=== PATIENT | female | born 1950 | race African-American/Black ===

== ENCOUNTER 2021-07-09 09:03 | Inpatient (IN) | payer OTHER ==
[2021-07-09 09:24] VITALS: BMI 16.9
[2021-07-09] MEDS ORDERED: PIPERACILLIN/TAZOB 4.5 GM 4.5 GM in DEXTROSE 5%-WATER 100 ML IVPB ONE (09:26)
[2021-07-09] MEDS ORDERED: VANCOMYCIN 1,000 MG in DEXTROSE 5%-WATER - 250 ML IVPB ONE (09:26)
[2021-07-09] MEDS ORDERED: PIPERACILLIN/TAZOB 4.5 GM 4.5 GM/100 ML BAG IVPB ONE (09:56)
[2021-07-09] MEDS ORDERED: VANCOMYCIN 1 GRAM (PRE-DOCKED) 1,000 MG/250 ML BAG IVPB ONE (09:56)
[2021-07-09 10:13] LABS: VENOUS BASE EXCESS -4.8 mmol/L (-2-2); VENOUS O2 SATURATION 57.8 % (70-80); VENOUS PH 7.248 (7.310-7.410)
[2021-07-09 10:26] LABS: BASO % 0.7 % (0-2.0); HEMATOCRIT 41.2 % (32.4-45.2); LYMPH % 16.3 % (8-40); MCH 34.6 pg (25.7-33.7); MCHC 34.1 g/dl (32.0-36.0); MEAN CELL VOLUME 101.6 fl (80-96); MEAN PLT VOLUME 8.4 fl (7.5-11.1); PLATELET COUNT 249 10^3/uL (134-434); RBC 4.06 M/mm3 (3.60-5.2); RDW 15.7 % (11.6-15.6); WHITE BLOOD COUNT 11.6 K/mm3 (4.0-10.0)
[2021-07-09 10:40] LABS: INR 0.94 (0.83-1.09); PROTHROMBIN TIME (PATIENT) 10.8 SEC (9.7-13.0)
[2021-07-09 10:42] LABS: ACTIVATED PTT 42.6 SECONDS (25.2-36.5)
[2021-07-09 10:50] LABS: CREATININE 1.2 mg/dL (0.55-1.3)
[2021-07-09 10:59] LABS: EPI CELLS 8 /uL (0-25.1); HYALINE CASTS 1 /uL (0-3.1); URINE APPEARANCE CLEAR; URINE BACTERIA >9,000 /uL (0-1359); URINE BILIRUBIN NEGATIVE (NEGATIVE); URINE COLOR DK YELLOW; URINE GLUCOSE (UA) NEGATIVE (NEGATIVE); URINE KETONE TRACE (NEGATIVE); URINE LEUK ESTERASE NEGATIVE (NEGATIVE); URINE NITRITE NEGATIVE (NEGATIVE); URINE PROTEIN 3+ (NEGATIVE); URINE RBC 16 /uL (0-23.9); URINE WBC 6 /uL (0-25.8)
[2021-07-09 11:39] LABS: LACTIC ACID 3.8 mmol/L (0.4-2.0)
[2021-07-09 11:44] LABS: ALBUMIN 2.9 g/dl (3.4-5.0); BILIRUBIN,TOTAL 0.7 mg/dL (0.2-1); BLOOD UREA NITROGEN 24.3 mg/dL (7-18); CALCIUM 9.5 mg/dL (8.5-10.1); TOT PROT 9.2 g/dl (6.4-8.2)
[2021-07-09 12:23] LABS: URINE CRYSTALS CALCIUM OXALATE /hpf
[2021-07-09] MEDS ORDERED: SODIUM CHLORIDE 1,000 ML IV SCH (14:45)
[2021-07-09] MEDS ORDERED: PIPERACILLIN/TAZOB 3.375 GM 3.375 GM in DEXTROSE 5%-WATER - 50 ML IVPB SCH (18:00)
[2021-07-09] MEDS ORDERED: HEPARIN NA (PORCINE) 5,000 UNITS/ML 1ML VIAL SQ SCH (18:00)
[2021-07-09] MEDS ORDERED: PIPERACILLIN/TAZOB 3.375 GM 3.375 GM/50 ML BAG IVPB ONE (18:07)
[2021-07-09] MEDS: PIPERACILLIN/TAZOB 3.375 GM 3.375 GM in DEXTROSE 5%-WATER - 50 ML IVPB SCH (18:24)
[2021-07-09] MEDS ORDERED: amLODIPine BESYLATE 10 MG TABLET (FP) PO ONE (18:28)
[2021-07-09] MEDS ORDERED: amLODIPine BESYLATE 10 MG TABLET (FP) ONE (18:30)
[2021-07-09] MEDS ORDERED: VANCOMYCIN 1 GM in D5W (PRE-DOCKED) 1,000 MG/250 ML IVPB SCH (22:00)
[2021-07-09] MEDS: DOCUSATE SODIUM 100 MG CAPSULE (FP) PO SCH (22:41)
[2021-07-09] MEDS: MIRTAZAPINE 15 MG TABLET (FP) PO SCH (22:41)
[2021-07-09] MEDS: HEPARIN NA (PORCINE) 5,000 UNITS/ML 1ML VIAL SQ SCH (22:41)
[2021-07-09] MEDS ORDERED: KETOROLAC TROMETHAMINE 15 MG/ML VIAL IVPUSH ONE (22:52)
[2021-07-10] MEDS ORDERED: PIPERACILLIN/TAZOBACTAM 3.375 GM VIAL IVPB ONE (01:21)
[2021-07-10] MEDS ORDERED: DEXTROSE 5%-WATER - 50 ML IVPB ONE ×2 (01:21→09:27)
[2021-07-10] MEDS: PIPERACILLIN/TAZOB 3.375 GM 3.375 GM in DEXTROSE 5%-WATER - 50 ML IVPB SCH (01:32)
[2021-07-10] MEDS: HEPARIN NA (PORCINE) 5,000 UNITS/ML 1ML VIAL SQ SCH ×3 (06:03→21:09)
[2021-07-10] MEDS: DOCUSATE SODIUM 100 MG CAPSULE (FP) PO SCH ×3 (06:03→21:09)
[2021-07-10 08:42] LABS: BASO % 0.8 % (0-2.0); HEMATOCRIT 35.3 % (32.4-45.2); HEMOGLOBIN 11.7 GM/dL (10.7-15.3); LYMPH % 22.3 % (8-40); MCH 34.2 pg (25.7-33.7); MCHC 33.1 g/dl (32.0-36.0); MEAN CELL VOLUME 103.3 fl (80-96); MEAN PLT VOLUME 8.9 fl (7.5-11.1); NEUT % 70.9 % (42.8-82.8); PLATELET COUNT 178 10^3/uL (134-434); RBC 3.42 M/mm3 (3.60-5.2); RDW 14.7 % (11.6-15.6); WHITE BLOOD COUNT 10.5 K/mm3 (4.0-10.0)
[2021-07-10 09:24] LABS: CALCIUM 8.3 mg/dL (8.5-10.1)
[2021-07-10 09:25] LABS: BLOOD UREA NITROGEN 15.7 mg/dL (7-18)
[2021-07-10] MEDS ORDERED: cefTRIAXone SODIUM 1 GM VIAL ONE (09:27)
[2021-07-10 09:28] LABS: CREATININE 0.9 mg/dL (0.55-1.3)
[2021-07-10 09:29] LABS: BILIRUBIN,TOTAL 1.1 mg/dL (0.2-1)
[2021-07-10 09:31] LABS: ALBUMIN 1.9 g/dl (3.4-5.0); TOT PROT 6.2 g/dl (6.4-8.2)
[2021-07-10] MEDS: DONEPEZIL HCL 5 MG TABLET (FP) PO SCH (10:13)
[2021-07-10] MEDS: CEFTRIAXONE 1 GM in DEXTROSE 5%-WATER - 50 ML IVPB SCH (10:13)
[2021-07-10] MEDS: ELVITEG/COB/EMTRI/TENOF (GENVOYA) TABLET (NF) PO SCH (11:54)
[2021-07-10] MEDS: MIRTAZAPINE 15 MG TABLET (FP) PO SCH (21:09)
[2021-07-11] MEDS: DOCUSATE SODIUM 100 MG CAPSULE (FP) PO SCH ×3 (05:50→21:17)
[2021-07-11 07:42] LABS: BASO % 1.5 % (0-2.0); EOS % 1.8 % (0-4.5); HEMATOCRIT 34.1 % (32.4-45.2); HEMOGLOBIN 11.5 GM/dL (10.7-15.3); MCH 34.7 pg (25.7-33.7); MCHC 33.7 g/dl (32.0-36.0); MEAN CELL VOLUME 103.1 fl (80-96); MEAN PLT VOLUME 8.9 fl (7.5-11.1); MONO % 7.4 % (3.8-10.2); NEUT % 57.3 % (42.8-82.8); PLATELET COUNT 180 10^3/uL (134-434); RBC 3.31 M/mm3 (3.60-5.2); RDW 14.7 % (11.6-15.6); WHITE BLOOD COUNT 8.1 K/mm3 (4.0-10.0)
[2021-07-11 07:49] LABS: INR 1.11 (0.83-1.09); PROTHROMBIN TIME (PATIENT) 12.8 SEC (9.7-13.0)
[2021-07-11 08:06] LABS: CHLORIDE 113 mmol/L (98-107); SODIUM 145 mmol/L (136-145)
[2021-07-11 08:12] LABS: GLUCOSE,RANDOM 94 mg/dL (74-106)
[2021-07-11 08:13] LABS: IRON SERUM 103 ug/dL (50-175); TOTAL IRON BINDING CAPACITY 166 ug/dL (250-450)
[2021-07-11 08:14] LABS: CALCIUM 8.3 mg/dL (8.5-10.1)
[2021-07-11 08:15] LABS: ANION GAP 5 MMOL/L (8-16); CO2 27 mmol/L (21-32); CREATININE 0.7 mg/dL (0.55-1.3)
[2021-07-11] MEDS ORDERED: POTASSIUM CHLORIDE ORAL LIQUID 20 MEQ/15 ML PO ONE (08:50)
[2021-07-11 09:28] LABS: MAGNESIUM 1.7 mg/dL (1.8-2.4)
[2021-07-11] MEDS ORDERED: DEXTROSE 5%-WATER - 50 ML IVPB ONE (09:39)
[2021-07-11] MEDS ORDERED: cefTRIAXone SODIUM 1 GM VIAL ONE (09:39)
[2021-07-11] MEDS: ELVITEG/COB/EMTRI/TENOF (GENVOYA) TABLET (NF) PO SCH (09:46)
[2021-07-11] MEDS: DONEPEZIL HCL 5 MG TABLET (FP) PO SCH (09:47)
[2021-07-11] MEDS: CEFTRIAXONE 1 GM in DEXTROSE 5%-WATER - 50 ML IVPB SCH (09:47)
[2021-07-11] MEDS ORDERED: MAGNESIUM 1GM/D5W - 1 GM/100 ML IVPB IVPB ONE (13:58)
[2021-07-11] MEDS: MIRTAZAPINE 15 MG TABLET (FP) PO SCH (21:18)
[2021-07-12] MEDS: DOCUSATE SODIUM 100 MG CAPSULE (FP) PO SCH ×2 (05:48→13:16)
[2021-07-12] MEDS: HEPARIN NA (PORCINE) 5,000 UNITS/ML 1ML VIAL SQ SCH ×2 (07:42→13:17)
[2021-07-12] MEDS ORDERED: cefTRIAXone SODIUM 1 GM VIAL ONE (08:52)
[2021-07-12] MEDS ORDERED: DEXTROSE 5%-WATER - 50 ML IVPB ONE (08:52)
[2021-07-12] MEDS: DONEPEZIL HCL 5 MG TABLET (FP) PO SCH (09:14)
[2021-07-12] MEDS: CEFTRIAXONE 1 GM in DEXTROSE 5%-WATER - 50 ML IVPB SCH (09:14)
[2021-07-12] MEDS: ELVITEG/COB/EMTRI/TENOF (GENVOYA) TABLET (NF) PO SCH (09:15)
[2021-07-12] MEDS ORDERED: POTASSIUM CHLORIDE ORAL LIQUID 20 MEQ/15 ML PO ONE (09:36)
[2021-07-12] MEDS ORDERED: CEFUROXIME AXETIL 250 MG TABLET PO SCH (10:00)
[2021-07-12 14:45] VITALS: BP 133/67; PULSE 95; TEMP 98.4
[2021-07-12 20:08] LABS: GLIADIN ANTIBODY IGA 2 units (0-19); GLIADIN ANTIBODY IGG 1 units (0-19); TRANSGLUTAMINASE IGG < 2 U/mL (0-5)
== END 2021-07-12 15:17 | DRG 637 ==
LOC: JER 09:03 → JERBED 14:23 → J8W 20:59
PROVIDERS: ADMIT Internal Medicine; ATTEND Internal Medicine
PROC: 0DB68ZX Excision of Stomach, Via Natural or Artificial Opening Endoscopic, Diagnostic (ICD-10-PCS; 2021-07-11)
PROC: 0DB58ZX Excision of Esophagus, Via Natural or Artificial Opening Endoscopic, Diagnostic (ICD-10-PCS; 2021-07-11)
PROC: 0DJ08ZZ Inspection of Upper Intestinal Tract, Via Natural or Artificial Opening Endoscopic (ICD-10-PCS; 2021-07-11)
PROC: 0DB98ZX Excision of Duodenum, Via Natural or Artificial Opening Endoscopic, Diagnostic (ICD-10-PCS; principal; 2021-07-11 12:15)
DX: E11.649 Type 2 diabetes mellitus with hypoglycemia without coma (principal); E43 Unspecified severe protein-calorie malnutrition; G92.8 Other toxic encephalopathy; N39.0 Urinary tract infection, site not specified; E87.2 Acidosis; Z68.1 Body mass index [BMI] 19.9 or less, adult; R64 Cachexia; N17.9 Acute kidney failure, unspecified; I10 Essential (primary) hypertension; J44.9 Chronic obstructive pulmonary disease, unspecified; K29.70 Gastritis, unspecified, without bleeding; I95.9 Hypotension, unspecified; Z21 Asymptomatic human immunodeficiency virus [HIV] infection status; F03.90 Unspecified dementia, unspecified severity, without behavioral disturbance, psychotic disturbance, mood disturbance, and anxiety; E86.0 Dehydration; R68.81 Early satiety; K80.20 Calculus of gallbladder without cholecystitis without obstruction; Z86.19 Personal history of other infectious and parasitic diseases
CPT/HCPCS: 0241U-QW; 36415; 71045-TC-FY; 74150-TC; 80048; 80053; 81003; 82105; 82272; 82728; 82784; 82803; 82962; 83036; 83516; 83540; 83550; 83605; 83735; 84439; 84443; 84484; 85025; 85610; 85730; 86038; 86140; 86359; 86360; 86705; 86850; 86900; 86901; 87040; 87086; 87340; 87516; 87517; 87522; 87807; 88305-TC; 93005; 93010; 97116-GP; 97161-GP; 99285-25; C9803-CS; J1644; U0003; U0005

== ENCOUNTER 2021-07-25 08:15 | Inpatient (IN) | payer OTHER ==
[2021-07-25] MEDS ORDERED: GLUCAGON 1 MG KIT ONE (08:31)
[2021-07-25] MEDS ORDERED: DEXTROSE 50%-WATER - 25 GM/50 ML VIAL IVPUSH ONE (08:41)
[2021-07-25] MEDS ORDERED: DEXTROSE 50%-WATER 25 GM/50 ML DISP.SYRIN ONE (08:47)
[2021-07-25 09:19] LABS: BASO % 1.2 % (0-2.0); EOS % 0.2 % (0-4.5); HEMATOCRIT 42.4 % (32.4-45.2); HEMOGLOBIN 14.2 GM/dL (10.7-15.3); LYMPH % 28.5 % (8-40); MCH 34.5 pg (25.7-33.7); MCHC 33.4 g/dl (32.0-36.0); MEAN CELL VOLUME 103.1 fl (80-96); MEAN PLT VOLUME 8.3 fl (7.5-11.1); MONO % 3.4 % (3.8-10.2); NEUT % 66.7 % (42.8-82.8); PLATELET COUNT 277 10^3/uL (134-434); RBC 4.11 M/mm3 (3.60-5.2); RDW 14.5 % (11.6-15.6)
[2021-07-25 09:24] LABS: VENOUS BASE EXCESS -4.8 mmol/L (-2-2); VENOUS PCO2 68.3 mmHg (38-52)
[2021-07-25 09:29] LABS: ACTIVATED PTT 51.9 SECONDS (25.2-36.5); INR 1.03 (0.83-1.09); PROTHROMBIN TIME (PATIENT) 11.9 SEC (9.7-13.0)
[2021-07-25 09:33] LABS: VENOUS PH 7.179 (7.310-7.410)
[2021-07-25] MEDS ORDERED: LACTATED RINGERS SOLUTION 1,000 ML/1,000 ML INFUS.BAG IV STA (09:41)
[2021-07-25] MEDS ORDERED: VANCOMYCIN 1 GM in D5W (PRE-DOCKED) 1,000 MG/250 ML IVPB ONE (09:42)
[2021-07-25] MEDS ORDERED: PIPERACILLIN/TAZOB 3.375 GM 3.375 GM in DEXTROSE 5%-WATER - 50 ML IVPB ONE (09:42)
[2021-07-25 09:46] LABS: ALBUMIN 2.8 g/dl (3.4-5.0); BLOOD UREA NITROGEN 14.8 mg/dL (7-18); CALCIUM 9.1 mg/dL (8.5-10.1)
[2021-07-25 09:48] LABS: CREATININE 1.1 mg/dL (0.55-1.3)
[2021-07-25 09:50] LABS: BILIRUBIN,TOTAL 0.5 mg/dL (0.2-1); TOT PROT 8.6 g/dl (6.4-8.2)
[2021-07-25] MEDS ORDERED: VANCOMYCIN 1 GRAM (PRE-DOCKED) 1,000 MG/250 ML BAG IVPB ONE (09:59)
[2021-07-25] MEDS ORDERED: PIPERACILLIN/TAZOB 3.375 GM 3.375 GM/50 ML BAG IVPB ONE (09:59)
[2021-07-25 10:05] LABS: EPI CELLS 9 /uL (0-25.1); HYALINE CASTS 0 /uL (0-3.1); URINE APPEARANCE CLEAR; URINE BACTERIA 16 /uL (0-1359); URINE BILIRUBIN NEGATIVE (NEGATIVE); URINE COLOR YELLOW; URINE GLUCOSE (UA) NEGATIVE (NEGATIVE); URINE KETONE NEGATIVE (NEGATIVE); URINE LEUK ESTERASE NEGATIVE (NEGATIVE); URINE NITRITE NEGATIVE (NEGATIVE); URINE PROTEIN 3+ (NEGATIVE); URINE RBC 6 /uL (0-23.9); URINE UROBILINOGEN 0.2 mg/dL (0.2-1.0)
[2021-07-25 11:24] LABS: LACTIC ACID 2.6 mmol/L (0.4-2.0)
[2021-07-25] MEDS ORDERED: ACETAMINOPHEN 1000 MG/100 ML BAG IVPB ONE (11:42)
[2021-07-25] MEDS ORDERED: ACETAMINOPHEN INJECTION 100 ML IVPB ONE (11:46)
[2021-07-25] MEDS ORDERED: LACTATED RINGERS SOLUTION 1,000 ML/1,000 ML INFUS.BAG IV SCH (13:00)
[2021-07-25 13:05] LABS: URINE WBC 76 /uL (0-25.8)
[2021-07-25 13:19] LABS: ARTERIAL BLD GAS O2 SATURATION 98.3 % (95-98); ARTERIAL BLOOD GAS BASE EXCESS -1.3 mmol/L (-2-2); ARTERIAL BLOOD GAS PO2 108.5 mmHg (80-100); ARTERIAL BLOOD GAS pH 7.466 (7.350-7.450)
[2021-07-25 13:21] LABS: ALLENS TEST POSITIVE
[2021-07-26 09:39] LABS: BASO % 1.2 % (0-2.0); EOS % 1.2 % (0-4.5); HEMATOCRIT 31.7 % (32.4-45.2); HEMOGLOBIN 10.9 GM/dL (10.7-15.3); LYMPH % 28.8 % (8-40); MCH 34.8 pg (25.7-33.7); MCHC 34.3 g/dl (32.0-36.0); MEAN CELL VOLUME 101.2 fl (80-96); MEAN PLT VOLUME 8.6 fl (7.5-11.1); MONO % 6.4 % (3.8-10.2); NEUT % 62.4 % (42.8-82.8); PLATELET COUNT 176 10^3/uL (134-434); RBC 3.14 M/mm3 (3.60-5.2); RDW 14.5 % (11.6-15.6); WHITE BLOOD COUNT 9.1 K/mm3 (4.0-10.0)
[2021-07-26 10:04] LABS: BLOOD UREA NITROGEN 15.8 mg/dL (7-18); CALCIUM 8.3 mg/dL (8.5-10.1)
[2021-07-26 10:07] LABS: CREATININE 0.9 mg/dL (0.55-1.3)
[2021-07-26 10:08] LABS: BILIRUBIN,TOTAL 0.6 mg/dL (0.2-1)
[2021-07-26 10:13] LABS: TOT PROT 5.8 g/dl (6.4-8.2)
[2021-07-26] MEDS ORDERED: amLODIPine BESYLATE 5 MG TABLET (FP) PO ONE (12:30)
[2021-07-27] MEDS ORDERED: ALBUTEROL SO4 HFA INHALER IH PRN (08:23)
[2021-07-27] MEDS ORDERED: cefTRIAXone SODIUM 1 GM VIAL ONE (09:45)
[2021-07-27] MEDS ORDERED: DEXTROSE 5%-WATER - 50 ML IVPB ONE (09:45)
[2021-07-27] MEDS: PANTOPRAZOLE 40 MG TABLET PO SCH (09:52)
[2021-07-27] MEDS: CEFTRIAXONE 1 GM in DEXTROSE 5%-WATER - 50 ML IVPB SCH (09:53)
[2021-07-27] MEDS: amLODIPine BESYLATE 5 MG TABLET (FP) PO SCH (12:36)
[2021-07-27 13:02] LABS: BASO % 1.4 % (0-2.0); EOS % 1.1 % (0-4.5); HEMATOCRIT 35.3 % (32.4-45.2); HEMOGLOBIN 12.1 GM/dL (10.7-15.3); LYMPH % 26.9 % (8-40); MCH 34.5 pg (25.7-33.7); MCHC 34.2 g/dl (32.0-36.0); MEAN CELL VOLUME 100.8 fl (80-96); MEAN PLT VOLUME 8.7 fl (7.5-11.1); MONO % 6.6 % (3.8-10.2); PLATELET COUNT 179 10^3/uL (134-434); RDW 14.3 % (11.6-15.6); WHITE BLOOD COUNT 8.1 K/mm3 (4.0-10.0)
[2021-07-27 13:53] LABS: BLOOD UREA NITROGEN 13.7 mg/dL (7-18); CALCIUM 8.3 mg/dL (8.5-10.1)
[2021-07-27 13:57] LABS: CREATININE 0.7 mg/dL (0.55-1.3)
[2021-07-27] MEDS: DOCUSATE SODIUM 100 MG CAPSULE (FP) PO SCH ×2 (14:35→21:47)
[2021-07-27] MEDS: MIRTAZAPINE 15 MG TABLET (FP) PO SCH (21:47)
[2021-07-27] MEDS: DONEPEZIL HCL 5 MG TABLET (FP) PO SCH (21:47)
[2021-07-28] MEDS: DOCUSATE SODIUM 100 MG CAPSULE (FP) PO SCH ×3 (06:02→21:29)
[2021-07-28] MEDS ORDERED: DEXTROSE 5%-WATER - 50 ML IVPB ONE (09:20)
[2021-07-28] MEDS ORDERED: cefTRIAXone SODIUM 1 GM VIAL ONE (09:20)
[2021-07-28] MEDS: PANTOPRAZOLE 40 MG TABLET PO SCH (09:23)
[2021-07-28] MEDS: amLODIPine BESYLATE 5 MG TABLET (FP) PO SCH (09:23)
[2021-07-28] MEDS: CEFTRIAXONE 1 GM in DEXTROSE 5%-WATER - 50 ML IVPB SCH (09:24)
[2021-07-28] MEDS: ENOXAPARIN NA (PORCINE) 40 MG/0.4 ML DISP.SYRIN SQ SCH (09:24)
[2021-07-28 09:59] VITALS: BMI 17.8
[2021-07-28] MEDS: DONEPEZIL HCL 5 MG TABLET (FP) PO SCH (21:29)
[2021-07-28] MEDS: MIRTAZAPINE 15 MG TABLET (FP) PO SCH (21:29)
[2021-07-29] MEDS: DOCUSATE SODIUM 100 MG CAPSULE (FP) PO SCH ×3 (05:53→21:09)
[2021-07-29] MEDS: amLODIPine BESYLATE 5 MG TABLET (FP) PO SCH (09:10)
[2021-07-29] MEDS: ENOXAPARIN NA (PORCINE) 40 MG/0.4 ML DISP.SYRIN SQ SCH (09:10)
[2021-07-29] MEDS: PANTOPRAZOLE 40 MG TABLET PO SCH (09:10)
[2021-07-29] MEDS: CEFTRIAXONE 1 GM in DEXTROSE 5%-WATER - 50 ML IVPB SCH (09:11)
[2021-07-29] MEDS: DONEPEZIL HCL 5 MG TABLET (FP) PO SCH (21:09)
[2021-07-29] MEDS: MIRTAZAPINE 15 MG TABLET (FP) PO SCH (21:09)
[2021-07-30] MEDS: DOCUSATE SODIUM 100 MG CAPSULE (FP) PO SCH ×3 (06:09→22:16)
[2021-07-30] MEDS: amLODIPine BESYLATE 5 MG TABLET (FP) PO SCH (09:55)
[2021-07-30] MEDS: PANTOPRAZOLE 40 MG TABLET PO SCH (09:55)
[2021-07-30] MEDS: ENOXAPARIN NA (PORCINE) 40 MG/0.4 ML DISP.SYRIN SQ SCH (09:55)
[2021-07-30] MEDS: DONEPEZIL HCL 5 MG TABLET (FP) PO SCH (22:16)
[2021-07-30] MEDS: MIRTAZAPINE 15 MG TABLET (FP) PO SCH (22:16)
[2021-07-30] MEDS ORDERED: DEXTROSE 50%-WATER - 25 GM/50 ML VIAL IVPUSH PRN (22:51)
[2021-07-31 04:35] VITALS: PULSE 86
[2021-07-31] MEDS: DOCUSATE SODIUM 100 MG CAPSULE (FP) PO SCH ×2 (06:21→13:49)
[2021-07-31] MEDS: INSULIN (NOVOLOG) ASPART 100 UNITS/ML 10ML VIAL SQ SCH ×2 (06:21→11:46)
[2021-07-31] MEDS ORDERED: AMINO ACIDS/PROTEIN HYDROLYS 30 ML LIQUID.PKT PO SCH (08:00)
[2021-07-31] MEDS: amLODIPine BESYLATE 5 MG TABLET (FP) PO SCH (09:58)
[2021-07-31] MEDS: ENOXAPARIN NA (PORCINE) 40 MG/0.4 ML DISP.SYRIN SQ SCH (09:58)
[2021-07-31] MEDS: PANTOPRAZOLE 40 MG TABLET PO SCH (09:58)
[2021-07-31 15:01] VITALS: BP 121/73; TEMP 98.8
[2021-07-31 16:07] LABS: KAPPA/LAMBDA RATIO, UR 2.61 (1.83-14.26)
== END 2021-07-31 17:00 | disposition home or self-care (01) | DRG 637 ==
LOC: JER 08:15 → JERBED 12:31 → J6S 22:47
PROVIDERS: ADMIT Internal Medicine; ATTEND Internal Medicine
DX: E11.649 Type 2 diabetes mellitus with hypoglycemia without coma (principal); E43 Unspecified severe protein-calorie malnutrition; Z68.1 Body mass index [BMI] 19.9 or less, adult; R64 Cachexia; R62.7 Adult failure to thrive; Z21 Asymptomatic human immunodeficiency virus [HIV] infection status; I10 Essential (primary) hypertension; K21.9 Gastro-esophageal reflux disease without esophagitis; E86.0 Dehydration; N17.9 Acute kidney failure, unspecified; F03.90 Unspecified dementia, unspecified severity, without behavioral disturbance, psychotic disturbance, mood disturbance, and anxiety; D64.9 Anemia, unspecified
CPT/HCPCS: 36415; 36600; 70450-TC; 71045-TC-FY; 80048; 80053; 81003; 82803; 82962; 83605; 83883; 84155; 84156; 84157; 84165; 85025; 85610; 85730; 86850; 86900; 86901; 87040; 87086; 93005; 93010; 93306-TC; 97116-GP; 97161-GP; 99285-25; C9803-CS; U0003; U0005

== ENCOUNTER 2021-11-29 13:18 | Inpatient (IN) | payer OTHER ==
[2021-11-29 18:16] LABS: BASO % 0.3 % (0-2.0); EOS % 0.1 % (0-4.5); HEMATOCRIT 40.6 % (32.4-45.2); HEMOGLOBIN 13.1 GM/dL (10.7-15.3); LYMPH % 9.6 % (8-40); MCH 33.8 pg (25.7-33.7); MCHC 32.2 g/dl (32.0-36.0); MEAN PLT VOLUME 10.2 fl (7.5-11.1); MONO % 3.8 % (3.8-10.2); NEUT % 86.2 % (42.8-82.8); PLATELET COUNT 178 10^3/uL (134-434); RBC 3.86 M/mm3 (3.60-5.2); RDW 14.4 % (11.6-15.6)
[2021-11-29 18:32] LABS: CHLORIDE 102 mmol/L (98-107); SODIUM 132 mmol/L (136-145)
[2021-11-29 18:36] LABS: ALBUMIN 0.3 g/dl (3.4-5.0); BLOOD UREA NITROGEN 29.6 mg/dL (7-18); CO2 23 mmol/L (21-32)
[2021-11-29 18:39] LABS: CREATININE 1.9 mg/dL (0.55-1.3); SGOT/AST 50 U/L (15-37); SGPT/ALT 30 U/L (13-61)
[2021-11-29 18:40] LABS: BILIRUBIN,TOTAL 0.6 mg/dL (0.2-1); TOT PROT 6.9 g/dl (6.4-8.2)
[2021-11-29 18:42] LABS: ALK PHOS 192 U/L (45-117)
[2021-11-29] MEDS ORDERED: SODIUM CHLORIDE 0.9% 500 ML INFUS.BAG IV ONE ×2 (18:44→19:05)
[2021-11-29 18:45] LABS: ANISOCYTOSIS 1+; MACROCYTOSIS 1+
[2021-11-29 18:52] LABS: ANION GAP 7 MMOL/L (8-16); GLUCOSE,RANDOM 837 mg/dL (74-106)
[2021-11-29 22:13] LABS: VENOUS BASE EXCESS -2.4 mmol/L (-2-2); VENOUS O2 SATURATION 81.7 % (70-80); VENOUS PCO2 37.3 mmHg (38-52); VENOUS PH 7.39 (7.310-7.410)
[2021-11-29 22:35] LABS: BLOOD UREA NITROGEN 20.4 mg/dL (7-18)
[2021-11-29 22:38] LABS: CREATININE 1.6 mg/dL (0.55-1.3)
[2021-11-29 23:01] LABS: EPI CELLS 19 /uL (0-25.1); HYALINE CASTS 1 /uL (0-3.1); URINE APPEARANCE TURBID; URINE BACTERIA 15 /uL (0-1359); URINE BILIRUBIN NEGATIVE (NEGATIVE); URINE COLOR YELLOW; URINE GLUCOSE (UA) 3+ (NEGATIVE); URINE KETONE NEGATIVE (NEGATIVE); URINE LEUK ESTERASE 2+ (NEGATIVE); URINE NITRITE NEGATIVE (NEGATIVE); URINE PROTEIN 3+ (NEGATIVE); URINE WBC 3988 /uL (0-25.8)
[2021-11-29 23:15] LABS: URINE RBC 793.8 /uL (0-23.9); YEAST PRESENT (NEGATIVE)
[2021-11-30] MEDS ORDERED: CEFTRIAXONE 1,000 MG in DEXTROSE 5%-WATER - 50 ML IVPB ONE (00:02)
[2021-11-30] MEDS ORDERED: INSULIN REGULAR HUMAN 100 UNITS/ML *VIAL* (FOR IVP) IVPUSH ONE (01:02)
[2021-11-30] MEDS ORDERED: INSULIN REGULAR 100 UNITS in SODIUM CHLORIDE 99 ML IVPB SCH (01:15)
[2021-11-30] MEDS ORDERED: INSULIN REGULAR HUMAN 100 UNITS/ML *VIAL IVPUSH ONE ×2 (01:23→05:40)
[2021-11-30] MEDS ORDERED: SODIUM CHLORIDE 1,000 ML IV STA (01:45)
[2021-11-30 02:09] VITALS: RESP 18
[2021-11-30 04:59] LABS: CHLORIDE 107 mmol/L (98-107); SODIUM 137 mmol/L (136-145)
[2021-11-30 05:02] LABS: ANION GAP 6 MMOL/L (8-16); BLOOD UREA NITROGEN 26.8 mg/dL (7-18); CO2 24 mmol/L (21-32)
[2021-11-30 05:05] LABS: CREATININE 1.4 mg/dL (0.55-1.3); SGOT/AST 15 U/L (15-37); SGPT/ALT 21 U/L (13-61)
[2021-11-30 05:07] LABS: BILIRUBIN,TOTAL 0.5 mg/dL (0.2-1); TOT PROT 5.3 g/dl (6.4-8.2)
[2021-11-30 05:12] LABS: ALK PHOS 140 U/L (45-117); GLUCOSE,RANDOM 430 mg/dL (74-106)
[2021-11-30] MEDS ORDERED: CEFTRIAXONE 1 GM/50 ML BAG ONE ×2 (05:37→10:24)
[2021-11-30] MEDS ORDERED: SODIUM CHLORIDE 1,000 ML IV SCH (05:45)
[2021-11-30 06:44] LABS: CALCIUM 8.7 mg/dL (8.5-10.1)
[2021-11-30] MEDS ORDERED: INSULIN (LEVEMIR) 100 UNITS/ML UNITS SQ ONE (08:30)
[2021-11-30] MEDS: INSULIN SLIDING SCALE (NOVOLOG) 1 VIAL SQ SCH ×4 (08:31→21:53)
[2021-11-30] MEDS ORDERED: amLODIPine BESYLATE 5 MG TABLET (FP) PO SCH (10:00)
[2021-11-30] MEDS ORDERED: DONEPEZIL HCL 5 MG TABLET (FP) PO SCH (10:00)
[2021-11-30] MEDS ORDERED: PANTOPRAZOLE SOD 40 MG SUSPENSION PACKET PO SCH (10:00)
[2021-11-30] MEDS ORDERED: CEFTRIAXONE 1 GM in DEXTROSE 5%-WATER - 50 ML IVPB SCH (10:00)
[2021-11-30] MEDS ORDERED: amLODIPine BESYLATE 5 MG TABLET (FP) ONE (10:23)
[2021-11-30] MEDS ORDERED: DONEPEZIL HCL 5 MG TABLET (FP) ONE (10:23)
[2021-11-30] MEDS: SODIUM CHLORIDE 1,000 ML IV SCH (17:17)
[2021-11-30] MEDS: MIRTAZAPINE 15 MG TABLET (FP) PO SCH (21:53)
[2021-11-30] MEDS ORDERED: MIRTAZAPINE 15 MG TABLET (FP) PO SCH (22:00)
[2021-12-01] MEDS: SODIUM CHLORIDE 1,000 ML IV SCH ×3 (01:25→22:16)
[2021-12-01] MEDS: INSULIN SLIDING SCALE (NOVOLOG) 1 VIAL SQ SCH ×4 (06:10→21:53)
[2021-12-01] MEDS: PANTOPRAZOLE 40 MG TABLET PO SCH (09:49)
[2021-12-01] MEDS: amLODIPine BESYLATE 5 MG TABLET (FP) PO SCH (09:49)
[2021-12-01] MEDS: DONEPEZIL HCL 5 MG TABLET (FP) PO SCH (09:49)
[2021-12-01] MEDS: CEFTRIAXONE 1 GM in DEXTROSE 5%-WATER - 50 ML IVPB SCH (09:51)
[2021-12-01 14:25] VITALS: BMI 16.9
[2021-12-01 15:53] LABS: BASO % 0.5 % (0-2.0); EOS % 0.4 % (0-4.5); HEMOGLOBIN 12.6 GM/dL (10.7-15.3); LYMPH % 10.1 % (8-40); MCH 33.7 pg (25.7-33.7); MCHC 32.4 g/dl (32.0-36.0); MEAN PLT VOLUME 10.2 fl (7.5-11.1); MONO % 4.5 % (3.8-10.2); NEUT % 84.5 % (42.8-82.8); PLATELET COUNT 185 10^3/uL (134-434); RBC 3.75 M/mm3 (3.60-5.2); RDW 14.2 % (11.6-15.6); WHITE BLOOD COUNT 13.3 K/mm3 (4.0-10.0)
[2021-12-01 16:13] LABS: CALCIUM 8.2 mg/dL (8.5-10.1)
[2021-12-01 16:14] LABS: BLOOD UREA NITROGEN 22.5 mg/dL (7-18); MAGNESIUM 2.2 mg/dL (1.8-2.4)
[2021-12-01 16:17] LABS: CREATININE 1.3 mg/dL (0.55-1.3); PHOSPHOROUS 2.1 mg/dL (2.5-4.9)
[2021-12-01 16:19] LABS: BILIRUBIN,TOTAL 0.5 mg/dL (0.2-1); TOT PROT 5.7 g/dl (6.4-8.2)
[2021-12-01] MEDS: NAPH,MB-DB/K PH,MBDB POWDER PACKET PO SCH ×2 (17:07→21:35)
[2021-12-01] MEDS: MIRTAZAPINE 15 MG TABLET (FP) PO SCH (21:35)
[2021-12-01] MEDS: DOCUSATE SODIUM 100 MG CAPSULE (FP) PO SCH (21:35)
[2021-12-02] MEDS: SODIUM CHLORIDE 1,000 ML IV SCH ×2 (06:07→15:25)
[2021-12-02] MEDS: DOCUSATE SODIUM 100 MG CAPSULE (FP) PO SCH ×3 (06:07→22:24)
[2021-12-02] MEDS: INSULIN SLIDING SCALE (NOVOLOG) 1 VIAL SQ SCH ×4 (06:13→22:25)
[2021-12-02] MEDS: INSULIN (LEVEMIR) 100 UNITS/ML UNITS SQ SCH ×2 (09:57→22:25)
[2021-12-02] MEDS: amLODIPine BESYLATE 5 MG TABLET (FP) PO SCH (09:57)
[2021-12-02] MEDS: DONEPEZIL HCL 5 MG TABLET (FP) PO SCH (09:57)
[2021-12-02] MEDS: PANTOPRAZOLE 40 MG TABLET PO SCH (09:57)
[2021-12-02] MEDS: ENOXAPARIN NA (PORCINE) 40 MG/0.4 ML DISP.SYRIN SQ SCH (09:58)
[2021-12-02] MEDS: CEFTRIAXONE 1 GM in DEXTROSE 5%-WATER - 50 ML IVPB SCH (09:58)
[2021-12-02] MEDS ORDERED: ENOXAPARIN NA (PORCINE) 40 MG/0.4 ML DISP.SYRIN SQ SCH (10:00)
[2021-12-02] MEDS: INSULIN (NOVOLOG) ASPART 100 UNITS/ML 10ML VIAL SQ SCH ×2 (11:10→16:42)
[2021-12-02] MEDS: FLUCONAZOLE 100 MG TABLET (UD) PO SCH (15:59)
[2021-12-02] MEDS: MIRTAZAPINE 15 MG TABLET (FP) PO SCH (22:24)
[2021-12-03] MEDS: DOCUSATE SODIUM 100 MG CAPSULE (FP) PO SCH ×3 (05:50→21:15)
[2021-12-03] MEDS: INSULIN SLIDING SCALE (NOVOLOG) 1 VIAL SQ SCH ×4 (06:41→21:13)
[2021-12-03] MEDS: INSULIN (NOVOLOG) ASPART 100 UNITS/ML 10ML VIAL SQ SCH ×3 (06:41→15:57)
[2021-12-03] MEDS: INSULIN (LEVEMIR) 100 UNITS/ML UNITS SQ SCH ×2 (06:41→21:13)
[2021-12-03] MEDS: amLODIPine BESYLATE 5 MG TABLET (FP) PO SCH (09:04)
[2021-12-03] MEDS: DONEPEZIL HCL 5 MG TABLET (FP) PO SCH (09:04)
[2021-12-03] MEDS: ENOXAPARIN NA (PORCINE) 40 MG/0.4 ML DISP.SYRIN SQ SCH (09:04)
[2021-12-03] MEDS: PANTOPRAZOLE 40 MG TABLET PO SCH (09:04)
[2021-12-03] MEDS: FLUCONAZOLE 100 MG TABLET (UD) PO SCH (09:05)
[2021-12-03] MEDS: ELVITEG/COB/EMTRI/TENOF (GENVOYA) TABLET (NF) PO SCH (12:29)
[2021-12-03 16:26] LABS: BASO % 0.8 % (0-2.0); EOS % 0.8 % (0-4.5); HEMATOCRIT 38.2 % (32.4-45.2); HEMOGLOBIN 12.6 GM/dL (10.7-15.3); LYMPH % 15.3 % (8-40); MCH 34.1 pg (25.7-33.7); MCHC 33.1 g/dl (32.0-36.0); MEAN CELL VOLUME 102.9 fl (80-96); MEAN PLT VOLUME 10.1 fl (7.5-11.1); MONO % 4.8 % (3.8-10.2); NEUT % 78.3 % (42.8-82.8); PLATELET COUNT 195 10^3/uL (134-434); RBC 3.71 M/mm3 (3.60-5.2); RDW 14.5 % (11.6-15.6); WHITE BLOOD COUNT 14.2 K/mm3 (4.0-10.0)
[2021-12-03 16:44] LABS: CALCIUM 7.9 mg/dL (8.5-10.1)
[2021-12-03 16:45] LABS: ALBUMIN 1.7 g/dl (3.4-5.0); BLOOD UREA NITROGEN 24.1 mg/dL (7-18); MAGNESIUM 2.2 mg/dL (1.8-2.4)
[2021-12-03 16:48] LABS: CREATININE 1.1 mg/dL (0.55-1.3)
[2021-12-03 16:49] LABS: PHOSPHOROUS 3.3 mg/dL (2.5-4.9)
[2021-12-03 16:51] LABS: BILIRUBIN,TOTAL 0.3 mg/dL (0.2-1); TOT PROT 5.1 g/dl (6.4-8.2)
[2021-12-03] MEDS ORDERED: INSULIN (NOVOLOG) ASPART 100 UNITS/ML 10ML VIAL ONE (21:08)
[2021-12-03] MEDS: MIRTAZAPINE 15 MG TABLET (FP) PO SCH (21:13)
[2021-12-04] MEDS: DOCUSATE SODIUM 100 MG CAPSULE (FP) PO SCH ×3 (06:32→21:26)
[2021-12-04] MEDS: INSULIN (LEVEMIR) 100 UNITS/ML UNITS SQ SCH ×2 (06:40→21:26)
[2021-12-04] MEDS: INSULIN SLIDING SCALE (NOVOLOG) 1 VIAL SQ SCH ×4 (06:41→21:26)
[2021-12-04] MEDS: INSULIN (NOVOLOG) ASPART 100 UNITS/ML 10ML VIAL SQ SCH ×3 (06:41→17:01)
[2021-12-04] MEDS: ELVITEG/COB/EMTRI/TENOF (GENVOYA) TABLET (NF) PO SCH (09:10)
[2021-12-04] MEDS: ENOXAPARIN NA (PORCINE) 40 MG/0.4 ML DISP.SYRIN SQ SCH (09:11)
[2021-12-04] MEDS: DONEPEZIL HCL 5 MG TABLET (FP) PO SCH (09:11)
[2021-12-04] MEDS: amLODIPine BESYLATE 5 MG TABLET (FP) PO SCH (09:11)
[2021-12-04] MEDS: FLUCONAZOLE 100 MG TABLET (UD) PO SCH (09:11)
[2021-12-04] MEDS: PANTOPRAZOLE 40 MG TABLET PO SCH (09:11)
[2021-12-04] MEDS: MIRTAZAPINE 15 MG TABLET (FP) PO SCH (21:20)
[2021-12-05] MEDS: DOCUSATE SODIUM 100 MG CAPSULE (FP) PO SCH ×3 (06:15→21:08)
[2021-12-05] MEDS: INSULIN (LEVEMIR) 100 UNITS/ML UNITS SQ SCH (06:16)
[2021-12-05] MEDS: INSULIN SLIDING SCALE (NOVOLOG) 1 VIAL SQ SCH ×4 (06:16→21:09)
[2021-12-05] MEDS: INSULIN (NOVOLOG) ASPART 100 UNITS/ML 10ML VIAL SQ SCH ×3 (06:18→16:48)
[2021-12-05] MEDS: ELVITEG/COB/EMTRI/TENOF (GENVOYA) TABLET (NF) PO SCH (08:59)
[2021-12-05] MEDS: amLODIPine BESYLATE 5 MG TABLET (FP) PO SCH (08:59)
[2021-12-05] MEDS: PANTOPRAZOLE 40 MG TABLET PO SCH (08:59)
[2021-12-05] MEDS: ENOXAPARIN NA (PORCINE) 30 MG/0.3 ML DISP.SYRIN SQ SCH (09:00)
[2021-12-05] MEDS: FLUCONAZOLE 100 MG TABLET (UD) PO SCH (09:00)
[2021-12-05] MEDS: DONEPEZIL HCL 5 MG TABLET (FP) PO SCH (09:00)
[2021-12-05 12:03] LABS: HEMATOCRIT 35.4 % (32.4-45.2); HEMOGLOBIN 11.7 GM/dL (10.7-15.3); MCH 34.8 pg (25.7-33.7); MEAN CELL VOLUME 105.5 fl (80-96); MEAN PLT VOLUME 8.7 fl (7.5-11.1); PLATELET COUNT 236 10^3/uL (134-434); RBC 3.36 M/mm3 (3.60-5.2); WHITE BLOOD COUNT 11.6 K/mm3 (4.0-10.0)
[2021-12-05 12:45] LABS: BLOOD UREA NITROGEN 30.7 mg/dL (7-18)
[2021-12-05 12:46] LABS: CALCIUM 7.9 mg/dL (8.5-10.1)
[2021-12-05 12:47] LABS: ALBUMIN 1.5 g/dl (3.4-5.0)
[2021-12-05 12:50] LABS: BILIRUBIN,TOTAL 0.5 mg/dL (0.2-1); CREATININE 1.3 mg/dL (0.55-1.3)
[2021-12-05 12:51] LABS: TOT PROT 4.9 g/dl (6.4-8.2)
[2021-12-05] MEDS ORDERED: DEXTROSE 50%-WATER 25 GM/50 ML DISP.SYRIN IVPUSH ONE (16:55)
[2021-12-05] MEDS ORDERED: DEXTROSE 50%-WATER 25 GM/50 ML DISP.SYRIN IVPUSH PRN (17:00)
[2021-12-05] MEDS ORDERED: INSULIN (NOVOLOG) ASPART 100 UNITS/ML 10ML VIAL ONE (21:04)
[2021-12-05] MEDS: MIRTAZAPINE 15 MG TABLET (FP) PO SCH (21:08)
[2021-12-06] MEDS: DOCUSATE SODIUM 100 MG CAPSULE (FP) PO SCH (06:33)
[2021-12-06] MEDS: INSULIN SLIDING SCALE (NOVOLOG) 1 VIAL SQ SCH (06:33)
[2021-12-06] MEDS ORDERED: INSULIN (NOVOLOG) ASPART 100 UNITS/ML 10ML VIAL ONE (06:54)
[2021-12-06] MEDS ORDERED: INSULIN (LEVEMIR) 100 UNITS/ML UNITS SQ SCH (07:00)
[2021-12-06] MEDS ORDERED: INSULIN (NOVOLOG MIX 70/30) 100 UNITS/ML MDV SQ SCH (07:00)
[2021-12-06] MEDS: ELVITEG/COB/EMTRI/TENOF (GENVOYA) TABLET (NF) PO SCH (08:57)
[2021-12-06] MEDS: ENOXAPARIN NA (PORCINE) 30 MG/0.3 ML DISP.SYRIN SQ SCH (08:59)
[2021-12-06] MEDS: PANTOPRAZOLE 40 MG TABLET PO SCH (08:59)
[2021-12-06] MEDS: DONEPEZIL HCL 5 MG TABLET (FP) PO SCH (08:59)
[2021-12-06] MEDS: amLODIPine BESYLATE 5 MG TABLET (FP) PO SCH (09:00)
[2021-12-06 09:11] VITALS: BP 143/74; PULSE 107; TEMP 98.9
== END 2021-12-06 11:04 | DRG 637 ==
LOC: JER 13:18 → JERBED 14:28 → J6S 11-30 15:17
PROVIDERS: ADMIT Internal Medicine; ATTEND Internal Medicine
DX: E11.00 Type 2 diabetes mellitus with hyperosmolarity without nonketotic hyperglycemic-hyperosmolar coma (NKHHC) (principal); G93.41 Metabolic encephalopathy; R64 Cachexia; N17.9 Acute kidney failure, unspecified; Z68.1 Body mass index [BMI] 19.9 or less, adult; B37.49 Other urogenital candidiasis; B20 Human immunodeficiency virus [HIV] disease; R62.7 Adult failure to thrive; F03.90 Unspecified dementia, unspecified severity, without behavioral disturbance, psychotic disturbance, mood disturbance, and anxiety; I10 Essential (primary) hypertension; E78.5 Hyperlipidemia, unspecified; K21.9 Gastro-esophageal reflux disease without esophagitis; E11.649 Type 2 diabetes mellitus with hypoglycemia without coma
CPT/HCPCS: 36415; 70450-TC; 71045-TC-FY; 80048; 80053; 81003; 82010; 82803; 82962; 83036; 83735; 83930; 84100; 85025; 85027; 87077; 87086; 93005; 93010; 97116-GP; 97161-GP; 99285-25; C9803-CS; U0003; U0005

== ENCOUNTER 2022-05-03 13:13 | Inpatient (IN) | payer OTHER ==
[2022-05-03] MEDS ORDERED: SODIUM CHLORIDE 0.9% 1000 ML INFUS.BAG IV ONE (16:52)
[2022-05-03 18:29] LABS: BLOOD UREA NITROGEN 29.4 mg/dL (7-18); MAGNESIUM 1.8 mg/dL (1.8-2.4)
[2022-05-03 18:31] LABS: CALCIUM 8.5 mg/dL (8.5-10.1)
[2022-05-03 18:32] LABS: CREATININE 1.9 mg/dL (0.55-1.3)
[2022-05-03 18:33] LABS: BILIRUBIN,TOTAL 0.3 mg/dL (0.2-1); TOT PROT 6.7 g/dl (6.4-8.2)
[2022-05-03] MEDS ORDERED: ACETAMINOPHEN 1000 MG/100 ML BAG IVPB ONE (19:09)
[2022-05-03 19:14] LABS: BASO % 1.3 % (0-2.0); EOS % 1.2 % (0-4.5); HEMATOCRIT 40.7 % (32.4-45.2); HEMOGLOBIN 13.5 GM/dL (10.7-15.3); LYMPH % 34.8 % (8-40); MCH 32.1 pg (25.7-33.7); MCHC 33.2 g/dl (32.0-36.0); MEAN CELL VOLUME 96.8 fl (80-96); MEAN PLT VOLUME 7.5 fl (7.5-11.1); MONO % 5.8 % (3.8-10.2); NEUT % 56.9 % (42.8-82.8); PLATELET COUNT 309 10^3/uL (134-434); RDW 14.4 % (11.6-15.6); WHITE BLOOD COUNT 8.6 K/mm3 (4.0-10.0)
[2022-05-03] MEDS ORDERED: ACETAMINOPHEN INJECTION 100 ML IVPB ONE (19:26)
[2022-05-03 19:42] LABS: BLOOD UREA NITROGEN 27.7 mg/dL (7-18)
[2022-05-03 19:45] LABS: CREATININE 1.9 mg/dL (0.55-1.3)
[2022-05-03 19:46] LABS: TOT PROT 8.3 g/dl (6.4-8.2)
[2022-05-03 19:47] LABS: BILIRUBIN,TOTAL 0.4 mg/dL (0.2-1)
[2022-05-03 19:59] LABS: ALBUMIN 2.5 g/dl (3.4-5.0)
[2022-05-04] MEDS ORDERED: ACETAMINOPHEN 325 MG TABLET (FP) PO PRN (04:09)
[2022-05-04 04:28] VITALS: RESP 18
[2022-05-04] MEDS: DEXTROSE 5%-NORMAL SALINE 1,000 ML IV SCH ×2 (04:45→19:55)
[2022-05-04] MEDS: INSULIN SLIDING SCALE (NOVOLOG) 1 VIAL SQ SCH ×4 (06:42→21:40)
[2022-05-04 08:47] LABS: BASO % 1.4 % (0-2.0); EOS % 1.8 % (0-4.5); HEMATOCRIT 37.3 % (32.4-45.2); HEMOGLOBIN 12.1 GM/dL (10.7-15.3); LYMPH % 34.1 % (8-40); MCH 31.7 pg (25.7-33.7); MCHC 32.6 g/dl (32.0-36.0); MEAN CELL VOLUME 97.3 fl (80-96); MEAN PLT VOLUME 7.2 fl (7.5-11.1); NEUT % 54.7 % (42.8-82.8); PLATELET COUNT 234 10^3/uL (134-434); RBC 3.83 M/mm3 (3.60-5.2); WHITE BLOOD COUNT 6.5 K/mm3 (4.0-10.0)
[2022-05-04 09:11] LABS: BLOOD UREA NITROGEN 22.7 mg/dL (7-18); CALCIUM 8.1 mg/dL (8.5-10.1)
[2022-05-04 09:14] LABS: CREATININE 1.5 mg/dL (0.55-1.3); PHOSPHOROUS 2.9 mg/dL (2.5-4.9)
[2022-05-04] MEDS: DONEPEZIL HCL 5 MG TABLET (FP) PO SCH (10:05)
[2022-05-04] MEDS: amLODIPine BESYLATE 5 MG TABLET (FP) PO SCH (10:06)
[2022-05-04] MEDS: CITALOPRAM HYDROBROMIDE 10 MG TABLET PO SCH (10:06)
[2022-05-04] MEDS: FAMOTIDINE 20 MG TABLET PO SCH (10:06)
[2022-05-04] MEDS: HEPARIN NA (PORCINE) 5,000 UNITS/ML 1ML VIAL SQ SCH ×2 (10:10→21:40)
[2022-05-04 15:43] LABS: EPI CELLS 4 /uL (0-25.1); HYALINE CASTS 1 /uL (0-3.1); PH,URINE 5.5 (5.0-8.0); URINE APPEARANCE CLOUDY; URINE BACTERIA 91 /uL (0-1359); URINE BILIRUBIN NEGATIVE (NEGATIVE); URINE COLOR YELLOW; URINE GLUCOSE (UA) 1+ (NEGATIVE); URINE KETONE NEGATIVE (NEGATIVE); URINE LEUK ESTERASE 2+ (NEGATIVE); URINE NITRITE NEGATIVE (NEGATIVE); URINE PROTEIN 3+ (NEGATIVE); URINE RBC 16 /uL (0-23.9); URINE UROBILINOGEN 0.2 mg/dL (0.2-1.0); URINE WBC 996 /uL (0-25.8)
[2022-05-04 16:08] LABS: YEAST FEW (NEGATIVE)
[2022-05-05] MEDS: DEXTROSE 5%-NORMAL SALINE 1,000 ML IV SCH ×2 (06:19→09:01)
[2022-05-05] MEDS: INSULIN SLIDING SCALE (NOVOLOG) 1 VIAL SQ SCH ×4 (06:20→22:12)
[2022-05-05 09:53] LABS: BASO % 1.1 % (0-2.0); CALCIUM 8.4 mg/dL (8.5-10.1); HEMATOCRIT 38.6 % (32.4-45.2); HEMOGLOBIN 12.6 GM/dL (10.7-15.3); LYMPH % 32.1 % (8-40); MCH 31.4 pg (25.7-33.7); MCHC 32.7 g/dl (32.0-36.0); MEAN CELL VOLUME 96.2 fl (80-96); MEAN PLT VOLUME 7.7 fl (7.5-11.1); MONO % 7.5 % (3.8-10.2); NEUT % 57.3 % (42.8-82.8); PLATELET COUNT 240 10^3/uL (134-434); RBC 4.01 M/mm3 (3.60-5.2); RDW 14.3 % (11.6-15.6); WHITE BLOOD COUNT 6.2 K/mm3 (4.0-10.0)
[2022-05-05 09:54] LABS: BLOOD UREA NITROGEN 17.5 mg/dL (7-18)
[2022-05-05 09:57] LABS: CREATININE 1.2 mg/dL (0.55-1.3)
[2022-05-05] MEDS: amLODIPine BESYLATE 5 MG TABLET (FP) PO SCH (10:05)
[2022-05-05] MEDS: CITALOPRAM HYDROBROMIDE 10 MG TABLET PO SCH (10:05)
[2022-05-05] MEDS: HEPARIN NA (PORCINE) 5,000 UNITS/ML 1ML VIAL SQ SCH ×2 (10:05→22:12)
[2022-05-05] MEDS: FAMOTIDINE 20 MG TABLET PO SCH (10:05)
[2022-05-05] MEDS: DONEPEZIL HCL 5 MG TABLET (FP) PO SCH (10:05)
[2022-05-05] MEDS ORDERED: INSULIN SLIDING SCALE (NOVOLOG) 1 VIAL SQ ONE (10:42)
[2022-05-05 12:11] VITALS: BMI 16.8
[2022-05-06] MEDS: INSULIN SLIDING SCALE (NOVOLOG) 1 VIAL SQ SCH ×4 (06:30→21:27)
[2022-05-06] MEDS: DONEPEZIL HCL 5 MG TABLET (FP) PO SCH (10:06)
[2022-05-06] MEDS: amLODIPine BESYLATE 5 MG TABLET (FP) PO SCH (10:06)
[2022-05-06] MEDS: FAMOTIDINE 20 MG TABLET PO SCH (10:06)
[2022-05-06] MEDS: CITALOPRAM HYDROBROMIDE 10 MG TABLET PO SCH (10:06)
[2022-05-06] MEDS: HEPARIN NA (PORCINE) 5,000 UNITS/ML 1ML VIAL SQ SCH ×2 (10:06→21:21)
[2022-05-06] MEDS: ELVITEG/COB/EMTRI/TENOF (GENVOYA) TABLET PO SCH (15:05)
[2022-05-07] MEDS: INSULIN SLIDING SCALE (NOVOLOG) 1 VIAL SQ SCH ×4 (06:23→21:25)
[2022-05-07 08:55] LABS: BASO % 1.1 % (0-2.0); EOS % 1.5 % (0-4.5); HEMATOCRIT 37.4 % (32.4-45.2); HEMOGLOBIN 12.2 GM/dL (10.7-15.3); LYMPH % 36.5 % (8-40); MCH 31.9 pg (25.7-33.7); MCHC 32.7 g/dl (32.0-36.0); MEAN CELL VOLUME 97.5 fl (80-96); MONO % 7.1 % (3.8-10.2); NEUT % 53.8 % (42.8-82.8); PLATELET COUNT 170 10^3/uL (134-434); RBC 3.84 M/mm3 (3.60-5.2); RDW 14.6 % (11.6-15.6); WHITE BLOOD COUNT 5.2 K/mm3 (4.0-10.0)
[2022-05-07 09:32] LABS: CALCIUM 8.8 mg/dL (8.5-10.1)
[2022-05-07 09:33] LABS: BLOOD UREA NITROGEN 21.4 mg/dL (7-18)
[2022-05-07 09:37] LABS: CREATININE 1.1 mg/dL (0.55-1.3)
[2022-05-07] MEDS: FAMOTIDINE 20 MG TABLET PO SCH (10:37)
[2022-05-07] MEDS: CITALOPRAM HYDROBROMIDE 10 MG TABLET PO SCH (10:37)
[2022-05-07] MEDS: DONEPEZIL HCL 5 MG TABLET (FP) PO SCH (10:37)
[2022-05-07] MEDS: HEPARIN NA (PORCINE) 5,000 UNITS/ML 1ML VIAL SQ SCH ×2 (10:37→21:25)
[2022-05-07] MEDS: amLODIPine BESYLATE 5 MG TABLET (FP) PO SCH (10:37)
[2022-05-07] MEDS ORDERED: CEFTRIAXONE 1 GM in DEXTROSE 5%-WATER - 50 ML IVPB SCH (12:00)
[2022-05-07] MEDS: ELVITEG/COB/EMTRI/TENOF (GENVOYA) TABLET PO SCH (12:53)
[2022-05-07] MEDS: CEFUROXIME AXETIL 500 MG TABLET PO SCH (21:33)
[2022-05-08] MEDS: INSULIN SLIDING SCALE (NOVOLOG) 1 VIAL SQ SCH ×4 (08:09→21:19)
[2022-05-08] MEDS: ELVITEG/COB/EMTRI/TENOF (GENVOYA) TABLET PO SCH (08:45)
[2022-05-08] MEDS: HEPARIN NA (PORCINE) 5,000 UNITS/ML 1ML VIAL SQ SCH ×2 (09:33→21:16)
[2022-05-08] MEDS: amLODIPine BESYLATE 5 MG TABLET (FP) PO SCH (09:35)
[2022-05-08] MEDS: DONEPEZIL HCL 5 MG TABLET (FP) PO SCH (09:35)
[2022-05-08] MEDS: FAMOTIDINE 20 MG TABLET PO SCH (09:35)
[2022-05-08] MEDS: CITALOPRAM HYDROBROMIDE 10 MG TABLET PO SCH (09:35)
[2022-05-08] MEDS: CEFUROXIME AXETIL 500 MG TABLET PO SCH (09:35)
[2022-05-08 21:48] VITALS: BP 135/74; PULSE 82; TEMP 98.2
== END 2022-05-08 21:57 | DRG 977 ==
LOC: JER 13:13 → JERBED 21:30 → J5S 05-04 03:39
PROVIDERS: ADMIT Internal Medicine; ATTEND Internal Medicine
DX: E86.0 Dehydration (principal); B20 Human immunodeficiency virus [HIV] disease; N17.9 Acute kidney failure, unspecified; E46 Unspecified protein-calorie malnutrition; N39.0 Urinary tract infection, site not specified; Z68.1 Body mass index [BMI] 19.9 or less, adult; R64 Cachexia; R62.7 Adult failure to thrive; F03.90 Unspecified dementia, unspecified severity, without behavioral disturbance, psychotic disturbance, mood disturbance, and anxiety; I10 Essential (primary) hypertension; K21.9 Gastro-esophageal reflux disease without esophagitis; E11.9 Type 2 diabetes mellitus without complications; Z79.4 Long term (current) use of insulin; J45.909 Unspecified asthma, uncomplicated; B18.2 Chronic viral hepatitis C
CPT/HCPCS: 0241U-QW; 36415; 71045-TC-FY; 74176-TC; 80048; 80053; 81003; 82105; 82570; 82962; 83036; 83605; 83690; 83735; 83935; 84100; 84300; 84443; 84484; 85025; 86359; 86360; 87086; 87186; 87522; 93005; 93010; 97116-GP; 97161-GP; 99285-25; J1644